=== PATIENT | female | born 1985 | race Caucasian/White ===

== ENCOUNTER 2020-01-10 20:37 | Emergency (ER) | payer MEDICAID ==
[~2020-01-10] VITALS: Ht 167.6 cm; Wt 82.0 kg
[2020-01-10 20:49] VITALS: BP 147/45
[2020-01-10] MEDS ORDERED: KETOROLAC 60MG/2ML VIAL IM ONE (23:15)
== END 2020-01-11 01:13 | disposition home or self-care (01) ==
LOC: ER 20:37
DX: R51 Headache (principal); M54.2 Cervicalgia; G89.11 Acute pain due to trauma; R03.0 Elevated blood-pressure reading, without diagnosis of hypertension; V49.40XA Driver injured in collision with unspecified motor vehicles in traffic accident, initial encounter; Y93.89 Activity, other specified; Y92.488 Other paved roadways as the place of occurrence of the external cause
CPT/HCPCS: 70450; 81025; 96372; 99284; J1885